=== PATIENT | female | born 1970 | race Caucasian/White ===

== ENCOUNTER 2024-10-21 10:54 | Emergency (ER) | payer OTHER, SELFPAY ==
--- OUTSIDE RECORDS SUMMARY | 2024-09-06 14:10 | XMS_ITS | Encounter Summary ---
Author Organization [employer] Address [address] [place] [address] Care Team Providers Care Glove Boarder Name Role Phone Needs Pcp, Assignment Primary Care Provider [phone] Reason for Visit * Reason Comments Follow-up NODULE, NODULES, THYROID Encounter Details Date Type Department Care Team (Late st Contact Info) Description 09/06/2024 2:10 PM CDT Phone Visit [facility] [address] Endocrinology [address] [facility]. [place], [place] [id number] Slava Mcclendon MD [address] [place], [place] [id number] Multiple thyroid nodules (HRC) (Primary Dx); Substernal goiter (HRC); Hypothyroidism, postsurgical Social History Tobacco Use Types Packs/Day Years Used Date Smoking Tobacco: Never Smokeless Tobacco: Never Alcohol Use Standard Drinks/Week Comments Not Currently 0 (1 standard drink = 0.6 oz pur e alcohol) [facility] Utilities Answer Date Recorded In the past 12 months has e electric, gas, oil, or water company threatened to shut off services in your home? No 08/23/2024 Humiliation, Afraid, Rape, and Kick questionnair e Answer Date Recorded Within the last year, have y ou been afraid of your partner or ex-partner? No 08/23/2024 Within the last year, have y ou been humiliated or emotionally abused in other ways by your partner or ex-partner? No Within the last year, have y ou been kicked, hit, slapped, or otherwise physically hurt by your partner or ex-partner? No 08/23/2024 Within the last year, have y ou been raped or forced to have any kind of sexual activity by your partner or ex-partner? No 08/23/2024 PHQ-2 Answer Date Recorded PHQ-2 Score 0 10/09/2023 Hunger Vital Sign Answer Date Recorded Within the past 12 months, y ou worried that your food would run out before you got the money to buy more. Never true 08/24/19 25 Within the past 12 months, t he food you bought just didn't last and you didn't have money to get more. Never true 08/23/2024 PRAPARE - Transportation Answer Date Re corded In the past 12 months, has l ack of transportation kept you from medical appointments or from getting medications? No 08/08 In the past 12 months, has l ack of transportation kept you from meetings, work, or from getting things needed for daily living? No 08/23/2024 Housing Stability Vital Sign Answer Josh e Recorded In the last 12 months, was t here a time when you were not able to pay the mortgage or rent on time? No 08/23/2024 In the past 12 months, how m any times have you moved where you were living? 0 08/23/2024 At any time in the past 12 m [facility], were you homeless or living in a m[facility] (including now)? No 08/23/2024 Comments No Sex and Gender Information Value Date Recorded Sex Assigned at Not on file Legal Sex Female 12:04 PM CDT Gender Identity Not on file Sexual Orientation Not on file documented as of this encounter Progress Notes * Slava Mcclendon MD - 09/06/2024 12:00 AM CDT NAME: SHANON BORRERO CSN: [id number] CLINIC NOTE DATE OF SERVICE: 09/06/2024 : 1970 SUBJECTIVE: Shanon is a 53-year-old female, returning for followup of postsurgical hypothyroidism and a large multinodular goiter with substernal components. The patient had undergone 3 thyroid surgeries. She first had a partial left lobectomy in April of 2022, followed by a right lobectomy in . She recently had sternotomy with removal of a large substernal goiter, weighing 85 g. The patient is recovering from surgery. She notes a somewhat weaker voice and cough. She has been taking levothyroxine for 2 years. We reduced the dose in 2023 and she is using 100 mcg daily. Labs drawn in May prior to the last surgery revealed a normal TSH of 1.22. The patient has noted weight gain. Last weight 206 pounds. CURRENT MEDICATIONS: Reviewed today in [facility] including levothyroxine 100 mcg daily. OBJECTIVE: The patient was seen by phone visit only. ASSESSMENT: 1. Postsurgical hypothyroidism. 2. Large multinodular goiter with substernal components. PLAN: 1. Recheck thyroid labs in about 2 weeks. This will be 1 month after the last surgery. 2. Adjust levothyroxine as needed. 3. It is unlikely that the thyroid is contributed to weight gain over the past year. TSH levels have been consistently normal. If persistent symptoms despite normal labs, consider the use of T3. The data supporting this is lacking. 4. Consider followup imaging in 2 to 3 years for the thyroid. The patient does have pulmonary nodules. She will discuss with primary care and determine intervals of followup there as well. 5. Otherwise, return to clinic in 1 year. Total time 31 minutes spent reviewing the chart and treatment plan. SLAVA MCCLENDON MD RMM/AQS /[id number] documented in this encounter Plan of Treatment Scheduled Orders Name Type Priority Associated Diagnoses Orde r Schedule TSH, Sensitive Lab Routine Hypothyroidism, postsurgical Expected: 09/20/2024, Expires: 02/06/2025 Free T4 Lab Routine Hypothyroidism, postsurgical Expected: 09/20/2024, Expires: 02/06/2025 Free T3, Serum Lab Routine Hypothyroidism, postsurgical Expected: 09/20/2024, Expires: 03/05/2025 documented as of this encounter Visit Diagnoses Diagnosis Multiple thyroid nodules (HRC)- Primary Nontoxic multinodular goiter Substernal goiter (HRC) Goiter, unspecified Hypothyroidism, postsurgical Postsurgical hypothyroidism documented in this encounter Care Teams Glove Boarder Relationship Specialty Start Date End Date Needs Pcp, [place] [address] PCP - General 08/23/24 documented as of this encounter
--- OUTSIDE RECORDS SUMMARY | 2024-09-07 10:30 | XMS_ITS | Encounter Summary ---
Author Organization [facility] Address [address] [place] [address] Care Team Providers Care Bed Setter Name Role Phone Needs Pcp, Assignment Primary Care Provider [phone] Reason for Visit * Procedure/Equipment (Routine) - Incomplete Specialty Diagnoses / Procedures Referred By Baron t Referred To Contact Diagnoses Multiple thyroid nodules (HRC) Procedures XR Chest 1 View Patrice Jerez MD [address] [place] [address] Phone: tel: fax: Referral ID Status Reason Start Date Expiration Date V isits Requested Visits Authorized [id number] Incomplete 09/07/2024 12/07/2025 1 1 Encounter Details Date Type Department Care Team (Late st Contact Info) Description 09/07/2024 10:30 AM CDT Ancillary Procedure [facility] [address] [employer] [facility]. [place], [place] [address] Patrice Jerez MD [address] [employer] [place], [place] [phone] Multiple thyroid nodules (HRC) Social History Tobacco Use Types Packs/Day Years Used Date Smoking Tobacco: Never Smokeless Tobacco: Never Alcohol Use Standard Drinks/Week Comments Not Currently 0 (1 standard drink = 0.6 oz pur e alcohol) [facility] Utilities Answer Date Recorded In the past 12 months has [employer] electric, gas, oil, or water company threatened [...] any time in the past 12 m [facility], were you homeless or living in a custodial (including now)? No 08/23/2024 Comments No Sex and Gender Information Value Date Recorded Sex Assigned at Not on file Legal Sex Female 12:04 PM CDT Gender Identity Not on file Sexual Orientation Not on file documented as of this encounter Plan of Treatment Not on file documented as of this encounter Procedures Procedure Name Priority Date/Time Associated Diagnosis Comments XR CHEST 1 VIEW Routine 09/07/2024 10:34 AM CDT Multiple thyroid nodules (HRC) documented in this encounter Results * XR Chest 1 View (09/07/2024 10:34 AM CDT) Anatomical Region Laterality Modality Chest, Lung Digital Radiogra phy Narrative 09/07/2024 12:44 PM CDT EXAM: XR CHEST 1 VIEW INDICATION: post op COMPARISON: 08/23/2024 FINDINGS: Single view. Normal cardiomediastinal silhouette and pulmonary vasculature. The lungs appear clear. No pneumothorax or pleural effusion. No suspected acute osseous abnormality. Signed by: Charo Louis 09/07/2024 12:44 PM Procedure Note Charo Louis MD - 09/07/2024 EXAM: XR CHEST 1 VIEW INDICATION: post op COMPARISON: 08/23/2024 FINDINGS: Single view. Normal cardiomediastinal silhouette and pulmonaryvasculature. The lungs appear clear. No pneumothorax or pleural effusion.No suspected acute osseous abnormality. Signed by: Charo Louis 09/07/2024 12:44 PM us Patrice Jerez MD RAD GD Final Resu lt documented in this encounter Visit Diagnoses Diagnosis Multiple thyroid nodules (HRC) Nontoxic multinodular goiter documented in this encounter Care Teams Bed Setter Relationship Specialty Start Date End Date Needs Pcp, [place] [address] PCP - General 08/23/24 documented as of this encounter
--- OUTSIDE RECORDS SUMMARY | 2024-09-07 11:00 | XMS_ITS | Encounter Summary ---
Author Organization [facility] Address [address] [place] [address] Care Team Providers Care Pumper Head Name Role Phone Needs Pcp, Assignment Primary Care Provider [phone] Reason for Referral * Procedure/Equipment (Routine) - Incomplete Specialty Diagnoses / Procedures Referred By Contac t Referred To Contact Diagnoses Multiple thyroid nodules (HRC) Procedures XR Chest 1 View Patrice Jerez MD [address] [place] [address] Phone: tel: fax: Referral ID Status Reason Start Date Expiration Date V isits Requested Visits Authorized [id number] Incomplete 09/07/2024 12/07/2025 1 1 Reason for Visit * Reason Comments Post-Op Check Encounter Details Date Type Department Care Team (Late st Contact Info) Description 09/07/2024 11:00 AM CDT [facility] [address] [facility]. [place], [place] [address] Patrice Jerez MD [address] [place], [place] [address] Multiple thyroid nodules (HRC) (Primary Dx); Muscle spasm Social History Tobacco Use Types Packs/Day Years Used Date Smoking Tobacco: Never Smokeless Tobacco: Never Alcohol Use Standard Drinks/Week Comments Not Currently 0 (1 standard drink = 0.6 oz pur e alcohol) [facility] Utilities Answer Date Recorded In the past 12 months has th e electric, gas, oil, or water company [...] any time in the past 12 m [facility], were you homeless or living in a [facility] (including now)? No 08/23/2024 Comments No Sex and Gender Information Value Date Recorded Sex Assigned at Not on file Legal Sex Female 12:04 PM CDT Gender Identity Not on file Sexual Orientation Not on file documented as of this encounter Last Filed Vital Signs Vital Sign Reading Time Taken Comments Blood Pressure 124/81 09/07/2024 10:41 AM CDT Pulse 82 09/07/2024 10:41 AM CDT Temperature - - Respiratory Rate - - Oxygen Saturation - - Inhaled Oxygen Concentration - - Weight 93.9 kg (207 lb) 09/07/2024 10:41 AM CDT Height 162.6 cm (5' 4) 09/07/2024 10:41 AM CDT Body Mass Index 35.53 09/07/2024 10:41 AM CDT documented in this encounter Patient Instructions * Patient Instructions* Abigail Milner LPN - 09/07/2024 11:00 AM CDT Thank you for choosing Cardiothoracic Surgery at [facility]! For follow-up medical questions for the nurse, please call Pennie at [phone]. For after hours emergencies, follow the instructions to be transferred to the outreach liaison provider. For appointments and scheduling, please call [phone]. For after business hours or weekend concerns needing immediate attention, please dial [phone] and the washing machine operator will assist you. For questions regarding billing, please contact [facility] [employer] [facility] at [phone]. documented in this encounter Progress Notes * Patrice Jerez MD - 09/07/2024 11:00 AM CDT Subjective: Paloma Borrero is a 53 y.o. female who had Sterotomy with resection of mediastinal thyroid on 08/23/24. Doing well. Offer minimal complaints She is feeling good . Pain is described as mild and is taking no narcotics. Breathing is described as no shortness of breath. Energy is described as 8/10 compared to preoperative status. Walking 20 minutes 2 times per day. The patient is satisfied with progress. Objective: BP 124/81 (BP Location: Right Arm, BP Cuff Size: Large) Pulse 82 Ht 5' 4 (162.6 cm) Wt 207 lb (31111 g) LMP (LMP Unknown) BMI 35.53 kg/m?? Physical Exam General appearance: Appears in good health. Lungs: clear to auscultation bilaterally Heart: regular rate and rhythm, S1, S2 normal, no murmur, click, rub or gallop Extremities: extremities normal, atraumatic, no cyanosis or edema, no edema, redness or tenderness in the calves or thighs Incisions: healing appropriately Imaging Chest X-Ray: clear Lab Review Lab Results Component Value Date WBC 7.6 08/23/2024 Hemoglobin 13.7 08/23/2024 HCT 41.3 08/23/2024 MCV 97.2 08/23/2024 Platelets 273 08/23/2024 Creatinine 0.93 08/23/2024 BUN 15 08/23/2024 INR 1.0 08/23/2024 Assessment: Status post resection of substernal thyroid. Satisfactory progress. Plan: Refill robaxin Return to clinic in as necessary. Will refer to PCP for further management. documented in this encounter Plan of Treatment Not on file documented as of this encounter Results * XR Chest 1 [...] thyroid nodules (HRC)- Primary Nontoxic multinodular goiter Muscle spasm Spasm of muscle Multiple thyroid nodules (HRC) Nontoxic multinodular goiter documented in this encounter Care Teams Pumper Head Relationship Specialty Start Date End Date Needs Pcp, [place] [address] PCP - General 08/23/24 documented as of this encounter
[2024-10-21 11:06] VITALS: BP 142/93; PULSE 80; RESP 16; TEMP 36.8; O2SAT 98; BMI 35.6
--- NOTE | 2024-10-21 11:48 | ED_ITS ---
HPI - General Adult General Time Seen by Provider: 11:48 Date Seen: 10/21/24 Chief complaint: Chest Pain Stated complaint: 7weeks post surgery- chest pain Time Seen by Provider: 10/21/24 11:58 Source: patient Mode of arrival: ambulatory History of Present Illness HPI narrative: Paloma is a 53-year-old female status post sternotomy for a medial stye no thyroid mass on 08/23 [facility], presents emergency department via private car and from home with chest pain. Patient states that she had some pain status post sternotomy to the incision site with when touching, she notes over the last few days pain is increased, she had an episode where she coughed in the car and had increased chest pain that she has not had before. She denies any shortness of breath, there has not been any increased redness to her incision site, she has not had any fevers or chills. Pain feels like she needs to cough but she is unable to, she has no cardiac history. Pain is minimal at this time. No changes with inspiration. She denies any diaphoresis, lightheadedness or dizziness. Related Data Home Medications ?Medication ?Instructions ?Recorded ?Confirmed acetaminophen 500 mg tablet PO 10/21/24 albuterol sulfate 90 mcg/actuation inhalation 10/21/24 aerosol inhaler cyclobenzaprine 5 mg tablet 5 mg PO 3XD PRN 10/21/24 0 10/21/24 levothyroxine 100 mcg tablet 100 mcg PO DAILY 10/21/24 10/21/24 Previous Rx's ?Medication ?Instructions ?Recorded cefadroxil 500 mg capsule 500 mg PO BID 7 days #14 cap s 10/21/24 sulfamethoxazole 800 1 tab PO BID 7 days #14 tabs 10/21/24 mg-trimethoprim 160 mg tablet (Bactrim DS) Allergies Allergy/AdvReac Type Severity Reaction Status Date / Time Latex, Natural Rubber Allergy Mild Difficulty Verified 10/21/24 11:05 Breathing morphine Allergy Mild internal Verified 10/21/24 11:05 burning THC Allergy Mild Nausea Uncoded 10/21/24 11:05 codine Allergy Headache Uncoded 10/21/24 11:05 Review of Systems Status of ROS: Reports: 10 or more systems reviewed and unremarkable except as noted in History and below Exam Narrative: Exam Narrative: General: No obvious distress sitting comfortably HEENT; pupils equal round reactive to light, extraocular muscles intact Lungs: Clear to auscultation bilaterally Heart normal sinus rhythm S1-S2 Sternotomy incision, mild tenderness to palpation, no induration or fluctuance, no drainage Abdomen: Soft nontender Neuro: GCS 15 Muscle skeletal: No lower extremity swelling Const: Vital Signs, click to edit/add: Vital Signs - 24 hr 10/21/24 11:06 10/21/24 15:10 Temperature 98.2 F Pulse Rate [Pulse Oximeter] 80 76 Respiratory Rate 16 16 Blood Pressure [Ri ght Upper Arm] 142/93 H 171/92 H Pulse Oximetry 98 99 Oxygen Delivery Me thod Room Air Room Air Course Course ED Course: 11:30 AM: aidet performed. Vitals are stable at this time, workup will include IV peripheral, will obtain EKG, troponin T, D-dimer, CBC, CMP. Will plan to rule out any developing cellulitis versus abscess, atypical presentation for ACS or pulmonary embolism. Differential includes less likely CAD, mi, PE, pneumothorax, possible pneumonia, also considered cellulitis versus abscess. Patient is nontoxic in appearance. Looking well otherwise. Reevaluation(s) Time of Reevaluation #1: 12:49 Reevaluation #1: CBC showed no leukocytosis, no anemia, troponin point of care 0.00, D-dimer<27, g metabolic panel showed normal electrolytes, LFTs and renal function, will obtain CT chest with IV contrast rule out abscess. Patient was in agreement Time of Reevaluation #2: 14:40 Reevaluation #2: Imaging: IMPRESSION: Surrounding inflammatory changes including soft tissue swelling at the site of sternotomy. These findings could be reflective of infectious etiology. Can not exclude osteomyelitis of the sternum. If there is further clinical concern for osteomyelitis recommend MRI chest with without contrast. No definitive chest wall abscess. No focal consolidation pleural effusion, or pneumothorax. Time of Reevaluation #3: 15:21 Reevaluation #3: Was able to speak with Dr. Jerez patient's Cardiothoracic surgeon, reviewed the CT imaging, his recommendations were to treat the cellulitis, Duricef 500 mg b.i.d. and Bactrim DS b.i.d. over the next 7 days, to not obtain MR chest at this time, formation secondary to recent sternotomy, and follow-up with primary care provider and if needed follow-up with him in the next couple weeks. This was discussed with patient she was in agreement. Vital Signs Vital signs: Initial Vital Signs Temperature 98.2 F 10/21/24 11:06 Temperature Source Temporal Artery Scan 10/21/24 11:06 Pulse Rate 80 10/21/24 11:06 Respiratory Rate 16 10/21/24 11:06 Blood Pressure 142/93 H 10/21/24 11:06 Blood Pressure Mean 109 H 10/21/24 11:06 Blood Pressure Position Sitting 10/21/24 11:06 Pulse Oximetry 98 10/21/24 11:06 Oxygen Delivery Method Room Air 10/21/24 11:06 Vital Signs Temperature 98.2 F 10/21/24 11:06 Pulse Rate 80 10/21/24 11:06 Respiratory Rate 16 10/21/24 11:06 Blood Pressure 142/93 H 10/21/24 11:06 Pulse Oximetry 98 10/21/24 11:06 Oxygen Delivery Method Room Air 10/21/24 11:06 Temperature 98.2 F 10/21/24 11:06 Pulse Rate 76 10/21/24 15:10 Respiratory Rate 16 10/21/24 15:10 Blood Pressure 171/92 H 10/21/24 15:10 Pulse Oximetry 99 10/21/24 15:10 Oxygen Delivery Method Room Air 10/21/24 15:10 Medical Decision Making Lab Data Labs: Lab Results 10/21/24 10/21/24 Range/Units 11:22 11:50 WBC 7.21 (4.50-11.00) K/uL RBC 4.21 (4.00-5.20) m/uL Hgb 13.8 (12.0-16.0) gm/dL Hct 41.7 (33.0-51.0) % MCV 99 (80-100) fL MCH 33 (26-34) pg MCHC 33 (32-36) gm/dL RDW Coeff of Lesley 12.1 (11.5-15.5) % Plt Count 280 (140-440) K/uL Neut % (Auto) 51.9 (42.0-72.0) % Lymph % (Auto) 39.1 (20-44) % [place] % (Auto) 6.2 (0.0-11.0) % Eos % (Auto) 1.5 (0.0-7.0) % Baso % (Auto) 0.6 (0.0-3.0) % Neut # (Auto) 3.74 (1.7-7.0) K/uL Lymph # (Auto) 2.82 (0.90-2.90) K/uL [place] # (Auto) 0.40 (0.00-0.90) K/UL Eos # (Auto) 0.11 (0.00-0.50) K/uL Baso # (Auto) 0.04 (0.00-0.30) K/uL Abs Immat Gran (auto) 0.05 (0.00-0.30) K/uL Imm/Tot Granulo (auto) 0.7 % D-Dimer Quant (PE/DVT) < 0.27 (0.00-0.50) ug/ml Sodium 140 (135-149) mmol/L Potassium 4.1 (3.6-5.1) mmol/L Chloride 103 (96-114) mmol/L Carbon Dioxide 26 (20-32) mmol/L Anion Gap 11 (7-15) mEq/L BUN 16 (7-30) mg/dL Creatinine 0.9 (0.5-1.5) mg/dL Estimated Creat Clear 64.30 Estimated GFR 76 ml/min Glucose 99 (60-115) mg/dL Calcium 9.5 (8.4-10.6) mg/dL Total Bilirubin 0.5 (0.1-1.5) mg/dL AST 36 H (12-35) U/L ALT 18 (4-35) U/L Alkaline Phosphatase 79 (40-150) U/L Total Protein 7.8 (6.0-8.3) g/dL Albumin 4.7 (3.3-5.0) g/dL POC Troponin I 0.00 L (0.01-0.04) ng/ml Discharge Plan Discharge Clinical Impression: Cellulitis of chest wall, Midline sternotomy scar Patient Disposition: Home, Self-Care Condition: Improved Instructions: Cellulitis (ED) Additional Instructions: Duricef 500 mg twice daily plus bactrim DS twice daily for 7 days, to follow up with primary care provider in the next 7-10 days. To reach out to CardioThoracic surgeon if needed. Return if worsening symptoms. Prescriptions: New cefadroxil 500 mg capsule 500 mg PO BID 7 Days Qty: 14 0RF sulfamethoxazole-trimethoprim [Bactrim DS] 800-160 mg tablet 1 tab PO BID 7 Days Qty: 14 0RF No Action acetaminophen 500 mg tablet PO levothyroxine 100 mcg tablet 100 mcg PO DAILY albuterol sulfate 90 mcg/actuation HFA aerosol inhaler inhalation cyclobenzaprine 5 mg tablet 5 mg PO 3XD PRN Follow Up/Referrals: Provider,Not a Local [Primary Care Provider, Family Practice] Stand Alone Forms: [employer] Info Instructions
[2024-10-21 12:09] LABS: Hematocrit 41.7 % (33.0-51.0); Hemoglobin* 13.8 gm/dL (12.0-16.0); Immature Granulocytes Abs Auto 0.05 K/uL (0.00-0.30); Immature Granulocytes Pct Auto 0.7 %; Lymphocytes Absolute Auto 2.82 K/uL (0.90-2.90); Mean Corpuscular HGB Conc 33 gm/dL (32-36); Mean Corpuscular Hemoglobin 33 pg (26-34); Mean Corpuscular Volume 99 fL (80-100); RDW Coefficient of Variation % 12.1 % (11.5-15.5); Red Blood Count 4.21 m/uL (4.00-5.20); White Blood Count* 7.21 K/uL (4.50-11.00)
[2024-10-21 12:22] LABS: Albumin* 4.7 g/dL (3.3-5.0); Chloride* 103 mmol/L (96-114); Sodium* 140 mmol/L (135-149)
[2024-10-21 12:23] LABS: Potassium* 4.1 mmol/L (3.6-5.1)
[2024-10-21 12:25] LABS: Alanine Aminotransferase* 18 U/L (4-35); Alkaline Phosphatase* 79 U/L (40-150); Anion Gap 11 mEq/L (7-15); Aspartate Amino Transferase* 36 U/L (12-35); Bilirubin Total* 0.5 mg/dL (0.1-1.5); Blood Urea Nitrogen* 16 mg/dL (7-30); Carbon Dioxide* 26 mmol/L (20-32); Creatinine* 0.9 mg/dL (0.5-1.5); Est. Creatinine Clearance* 64.30; Estimated Glomerular Filt Rate 76 ml/min; Total Protein* 7.8 g/dL (6.0-8.3)
[2024-10-21 12:25] LABS: Troponin, Point-of-Care* 0.00 ng/ml (0.01-0.04)
--- OUTSIDE RECORDS SUMMARY | 2024-10-21 12:25 | XMS_ITS | Clinical Summary ---
Author Organization [employer] [facility] Address [address] [place] [id number] Care Team Providers Care Cushion Maker Hand Name Role Phone Rashaun Beauchamp MD Unavailable [phone] Clinic, [facility] Primary Care Provider Allergies Active Allergy Reactions Criticality Noted Date Comments Codeine *Unknown,*Unknown - Follow up needed 04/04/2018 Latex Rash,Shortness Of Breath,*Unknown - Follow up needed,Dyspnea,Respir atory Distress High 05/16/2010 Other reaction(s): Unknown Marijuana (Cannabis) Headache,Palpitations 04/10 Morphine Other - Describe In Comment Field 03/22/2019 Pt states, I never want that drug again. It gave me a wave of pain. Unlisted Allergen (Include Detail In Comments) *Unknown 04/04/2018 Medications cholecalcifero l (VITAMIN D3) 50,000 unit capsuleIndicat ions:Vitamin D deficiency Take 1 capsule by mouth once weekly. 12 capsule 1 8 Active inhalational spacing deviceIndicati ons:Pneumonia of right lower lobe due to infectious organism For home use. 1 Each 1 Active albuterol HFA (PRO-AIR; VENTOLIN; PROVENTIL) 90 mcg/actuation inhalerIndicat ions:COVID Inhale 2 Puffs by mouth 4 times daily if needed for Shortness of Breath 1st choice. 1 Each 1 1 Active ibuprofen (ADVIL; MOTRIN) 600 mg tabletIndicati ons:Acute medial meniscus tear of right knee, initial encounter Take 1 Tablet (600 mg) by mouth every 8 hours if needed for Pain. Maximum of 3200 mg in 24 hours. 45 Tablet 2 10/15/2023 11:26 AM CDT 4 Active HYDROcodone-ac etaminophen (5-325 mg/tablet)Milli cations:Acute medial meniscus tear of right knee, initial encounter Take 1 Tablet by mouth every 6 hours if needed for Pain. Max acetaminophen dose: 4000 mg in 24 hrs. 15 Tablet 10/15/2023 11:26 AM CDT 4 Active methocarbamoL (ROBAXIN) 750 mg tabletIndicati ons:Acute medial meniscus tear of right knee, initial encounter Take 1 Tablet (750 mg) by mouth every 8 hours if needed for Muscle Spasm. 45 Tablet 2 10/15/2023 11:26 AM CDT 4 Active hydrOXYzine pamoate (VISTARIL) 25 mg capsuleIndicat ions:Acute medial meniscus tear of right knee, initial encounter Take 1 Capsule (25 mg) by mouth every 8 hours if needed for Anxiety or Itching (sleep). 45 Capsule 2 10/15/2023 11:26 AM CDT 4 Active sennosides-doc usate (SENOKOT S) (8.6-50 mg) tabletIndicati ons:Acute medial meniscus tear of right knee, initial encounter Take 1 Tablet by mouth once daily if needed for Constipation. 15 Tablet 10/15/2023 11:26 AM CDT 4 Active ondansetron (ZOFRAN) 4 mg tabletIndicati ons:Acute medial meniscus tear of right knee, initial encounter Take 1 Tablet (4 mg) by mouth every 8 hours if needed for Nausea/Vomiting. 8 Tablet 10/15/2023 11:26 AM CDT 4 Active lidocaine 4 % topical patchIndicatio ns:Chest wall pain Apply to intact skin to cover most painful area for max 12hr per 24hr period. 30 Patch 5 Active Active Problems Problem Noted Date Diagnosed Date Acute medial meniscus tear of right knee 024 Iron deficiency anemia 09/30/2017 Family history of MS (multiple sclerosis) 2016 H/O fibromyalgia 10/06/2015 Vitamin D deficiency 10/06/2015 Thyroid enlargement 10/31/2008 Hand pain 09/08/2008 Resolved Problems Problem Noted Date Diagnosed Date Resolved Date Heel pain 10/31/2008 04/12/2016 UTI (urinary tract infection) 10/31/2008 04/12/2016 Overview (05/23/2009): Updated by system to replace inactive record Preop exam for internal medicine 10/31/2008 04/12/2016 Encounters Date Type Department Care Team Description 09/09/2024 3:59 PM CDT - 09/09/2024 6:03 PM CDT Emergency [facility] [address] [place] [address] Christine Juarez MD Chest wall pain (Primary Dx) Discharge Disposition: Home Self Care 09/09/2024 Travel from Last 3 Months Immunizations Immunization Administration Dates Next Due Hepatitis A (Adult) 05/16/2010,07/22/20062006 Tdap 06/23/2012 Tuberculin (PPD) 07/27/2013 Family History Medical History Relation Name Comments Heart Disease Father CHF Other Father Psoriatic arthr itis Stroke Father Other Mother MS Other Sister MS Relation Name Status Comments Father Alive Mother Alive Sister Social History Tobacco Use Types Packs/Day Years Used Date Smoking Tobacco: Never Smokeless Tobacco: Never Tobacco Cessation:Counseling Given: Yes Alcohol Use Standard Drinks/Week Comments Yes 0 (1 standard drink = 0.6 oz pur e alcohol) Rare 1 drink in 6 months PHQ-2 Answer Date Recorded PHQ-2 Score 0 05/09/2018 Interpersonal Safety Answer Date Record ed Are you being hit, kicked, p ushed or yelled at (see row info)? No 09/09/2024 Interpersonal Safety Abuse 12 - 18 Not on file 09/09/2024 Interpersonal Safety Ambulatory Vulnerability No t on file 09/09/2024 Comments No Sex and Gender Information Value Date Recorded Sex Assigned at Not on file Legal Sex Female 6:59 AM [employer] Gender Identity Not on file Sexual Orientation Not on file Occupation Industry Job Start Date Job End Date Not on file Not on file Not on file Not on file Obstetrics History Para Term AB IAB SAB Ectopic Multiple Livin g Live Births 1 Date Outcome GA Total Labor Labor/2nd/3rd Weight Sex Type Anes PTL Kiley A1 A5 Name Clin Last Filed Vital Signs Vital Sign Reading Time Taken Comments Blood Pressure 134/77 09/09/2024 4:07 PM CDT Pulse 95 09/09/2024 4:07 PM CDT Temperature 36.8 C (98.3 F) 09/09/2024 4:07 PM CDT Respiratory Rate 18 09/09/2024 4:07 PM CDT Oxygen Saturation 97% 09/09/2024 4:07 PM CDT Inhaled Oxygen Concentration - - Weight 93.4 kg (206 lb) 09/09/2024 4:07 PM CDT Height 162.6 cm (5' 4) 09/09/2024 4:07 PM CDT Body Mass Index 35.36 09/09/2024 4:07 PM CDT Plan of Treatment Health Maintenance Due Date Last Done Comments HIV for age 15-65 1984 Hepatitis C screening for ag e 18-79 12/06/1987 Hepatitis B series for 19+ ( 1 of 3 - 19+ 3-dose series) 1988 Pap test for age 21-65 1990 Colonoscopy through age 75 2014 Mammogram for age 45-75 2014 05/16/2010 (Decli radha) Depression screening for age 12+ 04/14/2019 04/14/2018, 08/21/2016, 08/21/2016, Additional history exists BMI (ht and wt on same day) for age 18+ 05/09/2019 05/08/2018, 12/11/2017, 09/30/2017, Additional history exists Pneumococcal series for age 50+ (1 of 1 - PCV) 12/06/2019 Zoster (shingles) series for age 50+ (1 of 2) 12/06/2019 Lipids for age 45-75 08/09/2020 08/10/2015 Tetanus booster 06/23/2022 06/23/2012 COVID-19 vaccine series ( season) 2023 Influenza Vaccine (#1) 2024 Procedures Procedure Name Priority Date/Time Associated Diagnosis Comments XR CHEST 2 VIEWS PA AND LATERAL STAT 09/09/2024 4:54 PM CDT EKG 12 LEAD STAT 09/09/2024 4:08 PM CDT LIPID PANEL W REFLEX MEASURED LDL Routine 08/10/2015 1:35 PM CDT Healthcare maintenance from Last 3 Months or Most Recently Relevant to Health Maintenance Results * XR CHEST 2 VIEWS PA AND LATERAL (09/09/2024 4:54 PM CDT) Anatomical Region Laterality Modality CHEST, THORAX, Lung, HEART Digit al Radiography 09/09/2024 5:47 PM CDT Narrative 09/09/2024 5:47 PM CDT For Patients: As a result of the Cures Act, medical imaging exams and procedure reports are released immediately into your electronic medical record. You may view this report before your referring provider. If you have questions, please contact your health care provider. Indication: Chest pain. Technique: Frontal and lateral chest radiographs. Comparison: Chest radiographs from 10/11/2022. Findings: Left basilar atelectasis. Lungs are otherwise clear. No consolidation, effusion or pneumothorax. Cardiomediastinal silhouette is within normal limits. No significant osseous or soft tissue findings. Sternotomy changes. Impression: 1. No acute cardiopulmonary process. Dictated by Dale Pollock MD @ 09/09/2024 5:47:41 PM (Electronically Signed) Procedure Note Dale Pollock MD - 09/09/2024 For Patients: As a result of the Cures Act, medical imagingexams and procedure reports are released immediately into your electronicmedical record. You may view this report before your referring provider.If you have questions, please contact your health care provider. Indication: Chest pain. Technique: Frontal and lateral chest radiographs. Comparison: Chest radiographs from 10/11/2022. Findings: Left basilar atelectasis. Lungs are otherwise clear. No consolidation,effusion or pneumothorax. Cardiomediastinal silhouette is within normallimits. No significant osseous or soft tissue findings. Sternotomychanges. Impression: 1. No acute cardiopulmonary process. Dictated by Dale Pollock MD @ 09/09/2024 5:47:41 PM (Electronically Signed) Christine Juarez MD GENERAL IMAGING Final Res ult * EKG 12 LEAD (09/09/2024 4:08 PM CDT) Interpretation Normal sinus rhythm Normal ECG When compared with ECG of 11-Oct-2022 19:28, No significant change was found BEYOND NOW Ventricular Rate 91 BPM BEYOND NOW Atrial Rate 91 BPM BEYOND NOW P-R Interval 138 ms BEYOND NOW QRS Duration 68 ms BEYOND NOW QT 354 ms BEYOND NOW QTc 435 ms BEYOND NOW P [place] 63 degrees BEYOND NOW R [place] 36 degrees BEYOND NOW T [place] 51 degrees BEYOND NOW 09/09/2024 4:08 PM CDT 09/10/2024 2:37 AM CDT Christine Juarez MD EKG ORD Final Res ult BEYOND NOW [place], [place] * (ABNORMAL) LIPID PANEL W REFLEX MEASURED LDL (08/10/2015 1:35 PM CDT) CHOLESTEROL,TOTAL 208(H) 100 - 199 mg/dL 08/10/2015 2:02 PM CDT [facility] TRIGLYCERIDES 212(H) <150 mg/dL 08/10/2015 2:02 PM CDT [facility] HDL CHOLESTEROL 38(L) >40 mg/dL 08/10/2015 2:02 PM CDT [facility] NON-HDL CHOLESTEROL 170(H) <145 mg/dl 08/10/2015 2:02 PM CDT [facility] CHOL/HDL RATIO 5.47(H) <4.50 08/10/2015 2:02 PM CDT [facility] LDL CHOLESTEROL 128 <=130 mg/dL 08/10/2015 2:02 PM CDT [facility] PATIENT STATUS FASTING 08/10/2015 2:02 PM CDT [facility] Blood specimen (specimen) BLOOD SPECIMEN / Unknown Venipuncture / Unknown 08/10/2015 1:35 PM CDT 08/10/2015 1:36 PM CDT Rafaela Jacques MD CHEMISTRY Final Resu lt [facility] [address] [place] [address], from Last 3 Months or Most Recently Relevant to Health Maintenance Insurance [facility] [employer] [place] [facility] [address] [place] BOOKER [id number] [facility] Advance Directives * Full Code (Latest Code Status on File) Date Activated Date Inactivated Comments 10/15/2023 7:42 AM 10/15/2023 2:52 PM Question Answer Comments Code Status Discussion: Reviewed Preferences Care Teams Cushion Maker Hand Relationship Specialty Start Date End Date Clinic, [facility] [id number] [place] [id number] PCP - General 02/19/21 Rashaun Beauchamp MD [address] [facility] [address] [place] [address] Rheumatology Rheumatology 05/16/14
--- OUTSIDE RECORDS SUMMARY | 2024-10-21 12:25 | XMS_ITS | Clinical Summary ---
Author Organization [facility] Address [address], [place] [address] Care Team Providers Care Shotblast Equipment Operator Name Role Phone Needs Pcp, Assignment Primary Care Provider [phone] Source Comments You are receiving this document as you are listed as the primary care provider,follow-up provider, or the patient has been referred to you for consultation.This is in compliance with the Medicare andMedicaid EHR Incentive Program,which states Providers who transition their patient to another setting of careor provider of care or refers their patient to another provider of care shouldprovide summary care record for each transition of care or referral. [employer] Allergies Active Allergy Reactions Criticality Noted Date Comments Codeine Unknown 04/04/2018 Latex Rash,Respiratory Distress,Unknown High 05/16/2010 Other reaction(s): Unknown Marijuana (Cannabis Sativa) Headache,Palpitations 04/27/2021 Morphine Other, see comments 03/22/2019 Pt states, I never want that drug again. It gave me a wave of pain. Medications ibuprofen (MOTRIN) 600 MG tablet Take 1 Tablet (600 mg) by mouth every 8 hours as needed. 4 Active cyclobenzaprine (FLEXERIL) 5 MG tabletIndicatio ns:Muscle spasm Take 1 Tablet (5 mg) by mouth three times a day as needed for Muscle Spasms. 30 Tablet 2 5 Active Vitamin D, Ergocalciferol, 1.25 MG (18391 UT) CAPSIndications :Vitamin D deficiency (HRC),Fatigue, unspecified type,Hair loss,Screening for endocrine, metabolic and immunity disorder Take 1 Capsule (50,000 Units) by mouth once every week. 12 Capsule 1 5 Active ALBUterol sulfate HFA 108 (90 Base) MCG/ACT inhalerIndicati ons:Cough, unspecified type INHALE 1 TO 2 PUFFS BY MOUTH EVERY 4 HOURS NEEDED FOR WHEEZING OR SHORTNESS OF BREATH 18 g 5 Active acetaminophen (TYLENOL) 500 MG tablet Take 2 Tablets (1,000 mg) by mouth every 6 hours. Maximum acetaminophen dose is 4000 mg in 24 hours 100 Tablet 11 08/25/2024 4:37 PM CDT 5 Active docusate sodium (COLACE) 100 MG capsule Take 1 Capsule (100 mg) by mouth two times daily as needed for Constipation. 100 Capsule 08/25/2024 4:37 PM CDT 5 Active levothyroxine (SYNTHROID) 100 MCG tablet Take 1 Tablet (100 mcg) by mouth every evening. 90 Tablet 4 5 Active methocarbamol (ROBAXIN) 750 MG tabletIndicatio ns:Muscle spasm Take 1 Tablet (750 mg) by mouth every 8 hours as needed. 30 Tablet 2 5 Active Active Problems Problem Noted Date Diagnosed Date Prediabetes 08/18/2024 Sharp pain 01/29/2024 S/P right knee arthroscopy 10/28/2023 Acute medial meniscus tear, right, initial encou nter 09/23/2023 Partial tear of anterior cruciate ligament of kn ee 09/23/2023 Thyroid nodule 12/12/2022 Multiple thyroid nodules 02/13/2022 Arthritis 06/27/2021 Plantar fasciitis 04/27/2021 Iron deficiency anemia 09/30/2017 Family history of MS (multiple sclerosis) 2016 H/O fibromyalgia 10/06/2015 Vitamin D deficiency 10/06/2015 Thyroid enlargement 10/31/2008 Hand pain 09/08/2008 Encounters Date Type Department Care Team Description 09/07/2024 11:00 AM CDT [facility] [address] [place] [address]. [place] [address] Patrice Jerez MD Multiple thyroid nodules (HRC) (Primary Dx); Muscle spasm 09/07/2024 10:30 AM CDT Ancillary Procedure [facility] [address] [facility] [place] [address] Patrice Jerez MD Multiple thyroid nodules (HRC) 09/06/2024 2:10 PM CDT Phone Visit [place] [address] [place] [address]. [place] [address] Stefani Mcclendon MD Multiple thyroid nodules (HRC) (Primary Dx); Substernal goiter (HRC); Hypothyroidism, postsurgical 09/03/2024 Telephone [facility] [address] [place] [address]. [place] [address] Stefani Mcclendon MD Other 08/31/2024 Telephone [facility] Cardiothoracic Surgery [address] [place] [address]. [place] [address] Saleem Martinez PA-C 08/23/2024 3:40 PM CDT - 08/23/2024 11:59 PM CDT Hospital Encounter Radiology at [address] [place] [address] Patrice Jerez MD Diagnosis unknown Discharge Disposition: Home 08/23/2024 2:44 PM CDT Anesthesia Event [facility] [address] [place] [address]. [place] [address] Margarito Sharif MD 08/23/2024 1:15 PM CDT Ancillary Procedure Radiology PACS [address] [place] [id number] 08/23/2024 11:50 AM CDT - 08/23/2024 3:40 PM CDT Surgery [facility] [address] [facility] [address] Patrice Jerez MD MEDIASTERNOTOMY, Resection Ectopic Thyroid Mass 08/23/2024 9:20 AM CDT - 08/25/2024 4:57 PM CDT Hospital Encounter [facility] 3E-Telemetry [address] [place] [address]. [place] [address] Patrice Jerez MD Thyroid enlargement (HRC); Multiple thyroid nodules (HRC) Discharge Disposition: Home 08/23/2024 Orders Only HIM DEPARTMENT Provider, MD Alejandra 08/18/2024 7:00 AM CDT Pre-Op Visit [facility] [address] [place] [phone] Helen Flores, CARBURIZER, WAITSTAFF Preop examination (Primary Dx); Thyroid nodule (HRC) 08/13/2024 Refill [facility] [address] Endocrinology [address] [place] [address] Stefani Mcclendon MD Refill (levothyroxine (SYNTHROID) 100 MCG tablet [Pharmacy Med Name: LEVOTHYROXINE 0.100MG (100MCG) TAB]) 08/11/2024 Telephone [facility] [address] [place] [address] Patrice Jerez MD Follow-up 07/29/2024 9:00 AM CDT [facility] [address] [facility] [place], [place] [id number] Dale Berg, [facility] Non-seasonal allergic rhinitis, unspecified trigger (Primary Dx) 07/28/2024 Notes/Orders [facility] [address] [place] [address] Patrice Jerez MD Thyroid enlargement (HRC) (Primary Dx); Multiple thyroid nodules (HRC) from Last 3 Months Immunizations Immunization Administration Dates Next Due DTaP, Unspecified Formulation 06/23/2012 HepA Adult (19+ yrs) 05/16/2010,07/22/2006 TB Skin Test (PPD) 07/27/2013 TB Test - Historical 07/27/2013 Tdap 06/23/2012 Family History Medical History Relation Name Comments Arthritis Father Diabetes Father psoriatic arthritis Father Cancer, Colon Mother Cancer, Liver Mother Rheum Arthritis Mother Lupus Daughter lymes disease Daughter ms Sister Relation Name Status Comments Father Mother Daughter Alive Sister Social History Tobacco Use Types Packs/Day Years Used Date Smoking Tobacco: Never Smokeless Tobacco: Never Tobacco Cessation:Counseling Given: Not Answered Alcohol Use Standard Drinks/Week Comments Not Currently 0 (1 standard drink = 0.6 oz pur e alcohol) [facility] Utilities Answer Date Recorded In the past 12 months has th e fromAtoB, gas, oil, or water company threatened to [...] any time in the past 12 m [facility], were you homeless or living in a half-way (including now)? No 08/23/2024 Comments No Sex and Gender Information Value Date Recorded Sex Assigned at Not on file Legal Sex Female 12:04 PM CDT Gender Identity Not on file Sexual Orientation Not on file Last Filed Vital Signs Vital Sign Reading Time Taken Comments Blood Pressure 124/81 09/07/2024 10:41 AM CDT Pulse 82 09/07/2024 10:41 AM CDT Temperature 36.7 C (98 F) 08/25/2024 11:45 AM CDT Respiratory Rate 16 08/25/2024 2:30 AM CDT Oxygen Saturation 95% 08/25/2024 11:45 AM CDT Inhaled Oxygen Concentration - - Weight 93.9 kg (207 lb) 09/07/2024 10:41 AM CDT Height 162.6 cm (5' 4) 09/07/2024 10:41 AM CDT Body Mass Index 35.53 09/07/2024 10:41 AM CDT Plan of Treatment Health Maintenance Due Date Last Done Comments Cervical Cancer Screening Due 1969 Hep C Screening (Preventive Services) 1969 Mammogram 1969 HIV Screening (Preventive Services) 1985 Adult Preventive Visit 12/06/1987 HepB Vaccine (1) 1988 FIT Colon Cancer Screening 2013 Pneumococcal Vaccine 50+ Yrs (1 of 1 - PCV) 12/06/2019 Zoster/Shingles Vaccine (1 of 2) 12/06/2019 DTaP/Tdap/Td Vaccine (3 - Tdap) 06/23/2022 06/23/2012, 06/23/2012 COVID-19 Vaccine (1 - season) 2023 Influenza Vaccine (#1) 2024 Prediabetes: HGBA1C 05/18/2025 05/18/2024, 05/21/2022, 05/18/2021, Additional history exists Cholesterol 01/28/2029 01/29/2024, 05/08, 12/14/2020 HepA Vaccine Completed 05/16/2010, 07/22/2006 Hib Vaccine Aged Out No longer eligi ble based on patient's age to complete this topic IPV (Polio) Vaccine Aged Out No longe r eligible based on patient's age to complete this topic MCV4 Vaccine Aged Out No longer eligi ble based on patient's age to complete this topic Meningococcal B Vaccine Aged Out No l onger eligible based on patient's age to complete this topic Procedures Procedure Name Priority Date/Time Associated Diagnosis Comments XR CHEST 1 VIEW Routine 09/07/2024 10:34 AM CDT Multiple thyroid nodules (HRC) GLUCOSE, WHOLE BLOOD POCT Routine 08/25/2024 8:14 AM CDT INPATIENT TELEMETRY MONITORING Routine 08/24/2024 11:03 PM CDT INPATIENT TELEMETRY MONITORING Routine 08/24/2024 3:00 PM CDT GLUCOSE, WHOLE BLOOD POCT Routine 08/24/2024 12:10 PM CDT GLUCOSE, WHOLE BLOOD POCT Routine 08/24/2024 8:09 AM CDT INPATIENT TELEMETRY MONITORING Routine 08/24/2024 7:01 AM CDT INPATIENT TELEMETRY MONITORING Routine 08/23/2024 10:56 PM CDT GLUCOSE, WHOLE BLOOD POCT Routine 08/23/2024 7:17 PM CDT INPATIENT TELEMETRY MONITORING Routine 08/23/2024 7:10 PM CDT POTASSIUM STAT 08/23/2024 5:09 PM CDT HEMOGLOBIN, BLOOD STAT 08/23/2024 5:0 9 PM CDT XR PORTABLE CHEST 1 VIEW Routine 08/23/2024 4:54 PM CDT Diagnosis unknown SURGICAL PATHOLOGY Routine 08/23/2024 3: 46 PM CDT Thyroid enlargement (HRC) Multiple thyroid nodules (HRC) THYMECTOMY STERNAL APPROACH 08/23/2024 2:26 PM CDT Thyroid enlargement (HRC) Multiple thyroid nodules (HRC) A-LINE Routine 08/23/2024 1:56 PM CDT US ANESTHESIA GUIDED BLOCK Routine 08/23/2024 1:12 PM CDT COMPLETE BLOOD COUNT-W/DIFF STAT 08/23/2024 12:07 PM CDT Thyroid enlargement (HRC) Multiple thyroid nodules (HRC) APTT (ACTIVATED PARTIAL THROMBOPLASTIN TIME STAT 08/23/2024 12:07 PM CDT Thyroid enlargement (HRC) Multiple thyroid nodules (HRC) INR/PROTIME STAT 08/23/2024 12:07 PM CDT Thyroid enlargement (HRC) Multiple thyroid nodules (HRC) BASIC METABOLIC PANEL STAT 08/23/2024 12:07 PM CDT Thyroid enlargement (HRC) Multiple thyroid nodules (HRC) CBC AND DIFFERENTIAL PANEL STAT 08/23/2024 12:07 PM CDT Thyroid enlargement (HRC) Multiple thyroid nodules (HRC) ECG 12 LEAD INPATIENT Specified Time 08/23/2024 11:57 AM CDT Thyroid enlargement (HRC) Multiple thyroid nodules (HRC) GLUCOSE, WHOLE BLOOD POCT Routine 08/23/2024 11:43 AM CDT EKG 08/23/2024 HGB A1C Routine 05/18/2024 8:34 AM CDT Screening for diabetes mellitus LIPID PANEL & DIRECT LDL (IF NEEDED) Routine 01/29/2024 2:15 PM PORTRAIT STUDIO PHOTOGRAPHER Sharp pain from Last 3 Months or Most Recently Relevant to Health Maintenance Results * XR Chest 1 View (09/07/2024 [...] Jerez MD RAD GD Final Resu lt * Glucose, Whole Blood POCT (08/25/2024 8:14 AM CDT) Only the most recent of5 resultswithin the time period is included. Glucose, Whole Blood 106 70 - 180 mg/dL 08/25/2024 8:16 AM CDT [facility] Performing Location [place] 3E 08/25/2024 8:16 AM CDT [facility] Blood 08/25/2024 8:14 AM CDT 08/25/2024 8:16 AM CDT us Patrice Jerez MD LAB_1 Final Resu lt [facility] [address] * INPATIENT TELEMETRY MONITORING (08/24/2024 11:03 PM CDT) Only the most recent of5 resultswithin the time period is included. TELE P-R INTERVAL 0.16 MUSE [facility] TELE QRS DURATION 0.08 MUSE GHP TELE QT 0.35 MUSE [facility] TELE INTERPRETATION Sinus Rhythm Hafsa Leal RN MUSE P 08/24/2024 11:0 3 PM CDT Narrative MUSE GHP - 08/24/2024 11:27 PM CDT Sinus Rhythm Hafsa Leal, RN Interface Provider EKG Final Resu lt Performing Organization Address [facility] Co de Phone Number [facility] [address] [place] [address] * HEMOGLOBIN, BLOOD (08/23/2024 5:09 PM CDT) Hemoglobin 13.7 12.0 - 15.5 g/dL 08/23/2024 5:21 PM CDT [facility] Blood Venipuncture / Unknown 08/23/2024 5:09 PM CDT 08/23/2024 5:14 PM CDT Patrice Jerez MD LAB_1 Final Resu Performing Organization Address [facility] de Phone Number [facility] [address] * POTASSIUM (08/23/2024 5:09 PM CDT) Potassium 3.6 3.5 - 5.1 mmol/L 08/23/2024 5:42 PM CDT [facility] Blood Venipuncture / Unknown 08/23/2024 5:09 PM CDT 08/23/2024 5:14 PM CDT Patrice Jerez MD LAB_1 Final Resu Performing Organization Address [facility] de Phone Number [facility] [address] * XR Portable Chest 1 View (08/23/2024 4:54 PM CDT) Anatomical Region Laterality Modality Chest, Lung Radiographic Tayla ging 08/23/2024 4:45 PM CDT Narrative 08/23/2024 4:59 PM CDT COMPARISON: None. FINDINGS: Endotracheal tube tip projects approximately 1.9 cm above the vinita in good position. Perihilar predominant interstitial interspace opacities in both lungs, possibly pulmonary edema or atelectasis superimposed upon mediastinal surgical changes. Median sternotomy wires and mediastinal drain are new from the prior exam. No large pleural effusion or pneumothorax. No acute bony abnormality elsewhere. Procedure Note Jose Cruz Bey MD - 08/23/2024 COMPARISON: None. FINDINGS: Endotracheal tube tip projects approximately 1.9 cm above thecarina in good position. Perihilar predominant interstitial interspaceopacities in both lungs, possibly pulmonary edema or atelectasissuperimposed upon mediastinal surgical changes. Median sternotomy wiresand mediastinal drain are new from the prior exam. No large pleuraleffusion or pneumothorax. No acute bony abnormality elsewhere. us Patrice Jerez MD RAD PORTABLE Final Resu lt * Surgical Path (08/23/2024 3:46 PM CDT) Case Report Surgical Pathology Case: [id number] Authorizing Provider: Patrice Jerez MD Collected: 08/23/2024 1546 Ordering Location: [facility] Received: 08/23/2024 1600 Pathologist: Nicolas Altman MD Specimen: Thyroid Gland, ectopic thyroid 08/25/2024 8:18 AM CDT [facility] FINAL DIAGNOSIS Thyroid, ectopic, excision: Multinodular goiter 08/25/2024 8:18 AM CDT [facility] at 0818 CDT Clinical Information Thyroid enlargement (HRC) Multiple thyroid nodules (HRC) 08/25/2024 8:18 AM CDT [facility] Microscopic Description Microscopic examination is performed. 08/25/2024 8:18 AM CDT [facility] Gross Description A: Received fresh and labeled Thyroid Gland, ectopic thyroid are 2 fragments of thyroid tissue aggregating 85 g and measuring 2 x 1.5 x 1.1 cm and 9.5 x 5.3 x 2.8 cm. The tissues have smooth purple-brown surfaces and are differentially inked blue and black. Sectioning reveals campuzano gelatinous multi lobulated cut surfaces involving the entirety of both tissues. Within the larger tissue an area of gritty calcific tissue is noted involving a approximately a 1.5 cm in greatest dimension area of the tissue. No definitive masses or normal appearing thyroid parenchyma is identified. Building Architectural Designer sections are submitted as follows: A1: junior sales representative smaller tissue fragment A2-A7: junior sales representative larger tissue fragment with calcific tissue in A2-4 SN 08/25/2024 8:18 AM CDT [facility] Embedded Images 08/25/2024 8:18 AM CDT [facility] Tissue THYROID STRUCTURE / Unknown 08/23/2024 3:46 PM CDT 08/23/2024 4:00 PM CDT Patrice Jerze MD LAB PATHOLOGY Final Resu lt Performing Organization Address [facility] Co de Phone Number [facility] [address] * A-LINE (08/23/2024 1:56 PM CDT) Narrative EXTERNAL RESULTS - 08/23/2024 1:56 PM CDT Margarito Sharif MD 08/23/2024 1:58 PM A-Line Performed by: Margarito Sharif MD Authorizing/Supervising provider: Margarito Sharif MD Patient Location: OR Start Time: 08/23/2024 1:19 PM End Time: 08/23/2024 1:24 PM Indication: continuous blood pressure monitoring Written or Verbal consent obtained: informed consent obtained Inserted by: Anesthesiologist Number of attempts: 1 Procedure Detail: Catheter Type: Arrow Catheter Size: 20 gauge Catheter Length: 12 cm Skin Prep: Chloraprep Ultrasound guided?: Yes Sterile probe cover and gel used?: Yes Laterality: Right Site: Brachial artery Line Secured: Suture, tape and Tegaderm Antimicrobial dressing applied: Yes Maximal sterile barriers: all elements of maximal sterile barrier technique followed.. Events: patient tolerated procedure well with no complications Comments: This procedure was performed by Dr. Sharif. Signed by Dr. Sharif Arterial line placed after anesthesia start but prior to induction of anesthesia: No US image saved/archived?: No us Margarito Sharif MD [facility] PROCEDURES Final Re sult Performing Organization Address [facility] Co de Phone Number EXTERNAL RESULTS * US Anesthesia Guided Block (08/23/2024 1:12 PM CDT) Anatomical Region Laterality Modality Ultrasound Narrative 08/23/2024 1:12 PM CDT If an Anesthesia block was performed please see the Anesthesia encounter for documentation. This procedure was performed and interpreted by the performing provider. us Margarito Sharif MD [facility] Final Result * (ABNORMAL) Complete Blood Count-W/Diff (08/23/2024 12:07 PM CDT) WBC 7.6 3.5 - 10.5 x10(9)/L 08/23/2024 12:17 PM CDT [facility] RBC 4.25 3.90 - 5.03 x10(12)/L 08/23/2024 12:17 PM CDT [facility] Hemoglobin 14.2 12.0 - 15.5 g/dL 08/23/2024 12:17 PM CDT [facility] HCT 41.3 34.9 - 44.5 % 08/23/2024 12:17 PM CDT [facility] MCV 97.2 80.0 - 100.0 fL 08/23/2024 12:17 PM CDT [facility] MCH 33.4(H) 27.6 - 33.3 pg 08/23/2024 12:17 PM CDT [facility] MCHC 34.4 31.5 - 35.2 g/dL 08/23/2024 12:17 PM CDT [facility] RDW 11.8(L) 11.9 - 15.5 % 08/23/2024 12:17 PM CDT [facility] Platelets 273 150 - 450 x10(9)/L 08/23/2024 12:17 PM CDT [facility] Automated NRBC 0 <=0 /100 WBC 08/23/2024 12:17 PM CDT [facility] Neutrophil Absolute 4.1 1.7 - 7.0 10(9)/L 08/23/2024 12:17 PM CDT [facility] Lymphocyte Absolute 3.0 1.0 - 4.8 10(9)/L 08/23/2024 12:17 PM CDT [facility] Monocyte Absolute 0.4 0.2 - 0.9 10(9)/L 08/23/2024 12:17 PM CDT [facility] Eosinophil Absolute 0.1 0.0 - 0.5 10(9)/L 08/23/2024 12:17 PM CDT [facility] Basophil Absolute 0.0 0.0 - 0.3 10(9)/L 08/23/2024 12:17 PM CDT [facility] Immature Granulocyte % 0.4 0.0 - 0.5 % 08/23/2024 12:17 PM CDT [facility] Blood Venipuncture / Unknown 08/23/2024 12:07 PM CDT 08/23/2024 12:11 PM CDT us Patrice Jerez MD LAB_1 Final Resu lt [facility] [address] * (ABNORMAL) Basic Metabolic Panel (08/23/2024 12:07 PM CDT) Sodium 142 136 - 145 mmol/L 08/23/2024 12:41 PM CDT [facility] Potassium 4.1 3.5 - 5.1 mmol/L 08/23/2024 12:41 PM CDT [facility] Chloride 109 98 - 109 mmol/L 08/23/2024 12:41 PM CDT [facility] CO2 23 20 - 29 mmol/L 08/23/2024 12:41 PM CDT [facility] Anion Gap 10 6 - 16 mmol/L 08/23/2024 12:41 PM CDT [facility] Calcium 8.9 8.4 - 10.4 mg/dL 08/23/2024 12:41 PM CDT [facility] BUN 15 7 - 26 mg/dL 08/23/2024 12:41 PM CDT [facility] Creatinine 0.93 0.55 - 1.02 mg/dL 08/23/2024 12:41 PM CDT [facility] Glucose 113(H) 70 - 100 mg/dL 08/23/2024 12:41 PM CDT [facility] Comment:The given reference range is for the fasting state. Non-fasting reference range for glucose is 70 - 180 mg/dL. GFR, Estimated >60 >60 mL/min/1.7 3m2 08/23/2024 12:41 PM CDT [facility] Blood Venipuncture / Unknown 08/23/2024 12:07 PM CDT 08/23/2024 12:11 PM CDT us Patrice Jerez MD LAB_1 Final Resu lt Performing Organization Address [facility] de Phone Number [facility] [address] * APTT (ACTIVATED PARTIAL THROMBOPLASTIN TIME (08/23/2024 12:07 PM CDT) APTT 26.8 22.5 - 36.5 Seconds 08/23/2024 12:27 PM CDT [facility] Blood Venipuncture / Unknown 08/23/2024 12:07 PM CDT 08/23/2024 12:11 PM CDT us Patrice Jerez MD LAB_1 Final Resu lt Performing Organization Address [facility] Phone Number [facility] [address] * INR/PROTIME (08/23/2024 12:07 PM CDT) Protime 13.0 11.8 - 14.6 Seconds 08/23/2024 12:27 PM CDT [facility] INR 1.0 0.9 - 1.1 08/23/2024 12:27 PM CDT [facility] Blood Venipuncture / Unknown 08/23/2024 12:07 PM CDT 08/23/2024 12:11 PM CDT Narrative [facility] - 08/23/2024 12:27 PM CDT If you take an anticoagulant medicine called warfarin, your doctor or clinician may establish a normal range for you that is different from the baseline range shown. us Patrice Jerez MD LAB_1 Final Resu lt Performing Organization Address [facility] Co de Phone Number [facility] [address] [place] [address], [facility] * ECG 12 Lead Inpatient (08/23/2024 11:57 AM CDT) Ventricular Rate 83 BPM [facility] Atrial Rate 83 BPM [facility] P-R Interval 126 ms [facility] QRS Duration 84 ms [facility] QT 388 ms [facility] QTC 455 ms [facility] P Kidder 57 degrees MUSE [facility] R Kidder 34 degrees MUSE [facility] T Kidder 40 degrees MUSE [facility] 08/23/2024 11:5 7 AM CDT Narrative [facility] - 08/23/2024 1:49 PM CDT Sinus rhythm with occasional Premature ventricular complexes Otherwise normal ECG When compared with ECG of 03-APR-2022 15:10, Premature ventricular complexes are now Present Confirmed by Jerman Sheppard ([id number]) on 08/23/2024 1:49:18 PM Procedure Note Jerman Sheppard MD - 08/23/2024 Sinus rhythm with occasional Premature ventricular complexes Otherwise normal ECG When compared with ECG of 03-APR-2022 15:10, Premature ventricular complexes are now Present Confirmed by Jerman Sheppard ([id number]) on 08/23/2024 1:49:18 PM us Patrice Jerez MD PN ECG ORDERABLES Final Re sult [facility] [address] [place] [address] * EKG (08/23/2024) us Interface Provider EKG Final Resu lt * (ABNORMAL) Hgb A1C (05/18/2024 8:34 AM CDT) Hemoglobin A1C 5.9(H) <=5.6 % 05/18/2024 12:08 PM CDT [facility] Estimated Average Glucose (Calc) 123 < 117 mg/dL 05/18/2024 12:08 PM CDT [facility] Comment:Estimated average gl ucose (eAG) converts A1c into glucose units (mg/dL) and estimates average glucose over the past approximately 3 months. The eAG reference interval (<117 mg/dL) corresponds to an A1c of <5.7%. Blood Venipuncture / Unknown 05/18/2024 8:34 AM CDT 05/18/2024 8:34 AM CDT Narrative [facility] - 05/18/2024 12:08 PM CDT For patients not previously diagnosed with diabetes: 5.7-6.4%: Increased risk for diabetes 6.5% and greater: Diagnostic for diabetes For patients diagnosed with diabetes: <8.0%: Goal of therapy for ages 18-75 Clinicians may recommend a higher or lower goal for specific individuals. us Elias Merrill MD LAB_1 Final Result [facility] [address] * (ABNORMAL) Lipid Panel and Direct LDL(If Needed) (01/29/2024 2:15 PM PORTRAIT STUDIO PHOTOGRAPHER) Cholesterol 263(H) 0 - 199 mg/dL 01/29/2024 7:17 PM PORTRAIT STUDIO PHOTOGRAPHER [facility] Triglyceride 383(H) <=149 mg/dL 01/29/2024 7:17 PM [facility] HDL Cholesterol 41 >=40 mg/dL 01/29/2024 7:17 PM PORTRAIT STUDIO PHOTOGRAPHER [facility] LDL, Calculated 145(H) <130 mg/dL 01/29/2024 7:17 PM [facility] Non HDL Chol, Calculated 222(H) <=159 mg/dL 01/29/2024 7:17 PM [facility] Cholesterol/HDL Ratio 6.4(H) <=5.0 01/29/2024 7:17 PM PORTRAIT STUDIO PHOTOGRAPHER [facility] Hours Fasting 0.0 8 - 12 Hours 01/29/2024 7:17 PM [facility] Blood Venipuncture / Unknown 01/29/2024 2:15 PM PORTRAIT STUDIO PHOTOGRAPHER 01/29/2024 2:15 PM PORTRAIT STUDIO PHOTOGRAPHER us Keri M Niki PA-C LAB_1 Final Resul t [facility] [address] [place] [address], [facility] from Last 3 Months or Most Recently Relevant to Health Maintenance Insurance [id number] [id number] [place] [address] [facility] [place] [address] Advance Directives * Full Code (Latest Code Status on File) Date Activated Date Inactivated Comments 08/23/2024 7:12 PM 08/25/2024 7:02 PM * Full Code Date Activated Date Inactivated Comments 01/17/2023 5:16 PM 01/17/2023 9:43 PM * Full Code Date Activated Date Inactivated Comments 04/10/2022 7:59 PM 04/11/2022 3:00 AM Care Teams Shotblast Equipment Operator Relationship Specialty Start Date End [place] [address] PCP - General 08/23/24
--- OUTSIDE RECORDS SUMMARY | 2024-10-21 12:25 | XMS_ITS | Clinical Summary ---
Author Organization [facility] Address [address] [place] [id number] Care Team Providers Care Electrical Systems Engineer Name Role Phone Unavailable Primary Care Provider Unavailabl e Allergies Active Allergy Reactions Criticality Noted Date Comments Codeine Unknown 04/04/2018 Latex Rash,Shortness Of Breath,Unknown High 05/16/2010 Other reaction(s): Unknown Medications cyclobenzaprine (FLEXERIL) 5 MG tablet Take 5 mg by mouth 05/21/2017 Active traMADol (ULTRAM) 50 MG tablet Take 50 mg by mouth 05/16/2017 Active vitamin D3 (D3-50) 1.25 MG (91499 UT) capsule Take 50,000 Units by mouth 12/11/2017 Active Immunizations Immunization Administration Dates Next Due DTaP, Unspecified 06/23/2012 Hepatitis A (VAQTA)(ADULT 19+) 05/16/2010,2006 Mantoux Tuberculin Skin Test 07/27/2013 Social History Tobacco Use Types Packs/Day Years Used Date Smoking Tobacco: Never Smokeless Tobacco: Never Comments No Sex and Gender Information Value Date Recorded Sex Assigned at Not on file Legal Sex Female 3:56 AM [employer] P[employer] Gender Identity Not on file Sexual Orientation Not on file Last Filed Vital Signs Vital Sign Reading Time Taken Comments Blood Pressure 108/80 01/19/2019 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
[2024-10-21 12:26] LABS: Calcium* 9.5 mg/dL (8.4-10.6); Glucose* 99 mg/dL (60-115)
[2024-10-21 12:30] LABS: Slide Review Reflex No
[2024-10-21 12:39] LABS: D Dimer Quantitative* < 0.27 ug/ml (0.00-0.50)
--- NOTE | 2024-10-21 12:45 | CRLHL7_ITS ---
For Patients: As a result of the Century Cures Act, medical imaging exams and procedure reports are released immediately into your electronic medical record. You may view this report before your referring provider. If you have questions, please contact your health care provider. INDICATION: History of sternal surgery with increased pain. TECHNIQUE: CT chest with 75 cc Omnipaque 350 IV contrast. COMPARISON: Chest x-ray 09/09/2024 FINDINGS: Lungs and pleura: No pleural effusion or pneumothorax. Heart and vasculature: Heart size is normal. Thoracic aorta and pulmonary artery are normal in caliber. Lymph nodes/mediastinum: No mediastinal, hilar, or axillary adenopathy. Chest wall: Sternotomy wires. Soft tissue swelling/inflammatory changes surrounding the sternotomy site without delineated abscess or fluid collection. Upper abdomen: Normal. Bones: No acute osseous abnormality. IMPRESSION: Surrounding inflammatory changes including soft tissue swelling at the site of sternotomy. These findings could be reflective of infectious etiology. Can not exclude osteomyelitis of the sternum. If there is further clinical concern for osteomyelitis recommend MRI chest with without contrast. No definitive chest wall abscess. No focal consolidation pleural effusion, or pneumothorax. Please note that all CT scans at this facility use dose modulation, iterative reconstruction, and/or weight-based dosing when appropriate to reduce radiation dose to as low as reasonably achievable. Dictated by Kyree Hauser MD @ 10/21/2024 2:22:46 PM (Electronically Signed)
[2024-10-21 15:10] VITALS: BP 171/92; PULSE 76; RESP 16; O2SAT 99
== END 2024-10-21 15:34 | disposition home or self-care (01) ==
PROVIDERS: Emergency Provider Student in an Organized Health Care Education/Training Program
DX: L03.313 Cellulitis of chest wall (principal); L90.5 Scar conditions and fibrosis of skin
CPT/HCPCS: 36415; 71260; 80053; 84484; 85025; 85379; 93005; 99283; 99284; 99285; Q9967